=== PATIENT | female | born 1970 | race Caucasian/White ===

== ENCOUNTER 2017-09-20 20:30 | Inpatient (IN) ==
[2017-09-20 22:12] LABS: ABG Base Excess -11.9 MMOL/L (-2.5-2.5); ABG HCO3 15.4 MMOL/L (20-26); ABG Oxygen Saturation 97.8 % (95-100); ABG PCO2 25.4 MM HG (35-48); ABG PH 7.313 (7.35-7.45); ABG TCO2 11.2 MMOL/L (23-27)
[2017-09-20] MEDS ORDERED: ALBUTEROL 2.5 MG/3 ML NEB RESP TX PRN (22:54)
[2017-09-20] MEDS ORDERED: SODIUM CHLORIDE 0.45% 1,000 ML IV SCH (23:00)
[2017-09-20 23:01] LABS: Basophils % 0.3 % (0.0-0.8); Eosinophils # 0.1 10*3/uL (0.0-0.87); Eosinophils % 1.5 % (0.00-10.9); Hematocrit 41.3 VOL% (35.7-47.0); Hemoglobin 14.5 GM/DL (12.0-16.0); Immature Granulocytes % 0.5 %; Immature Granulocytes Absolute 0.05 #; Lymphocytes # 2.8 10*3/uL (1.4-4.0); Lymphocytes % 28.9 % (21.3-54.2); Mean Corpuscular HGB Conc 35.1 GM/DL (32-36); Mean Corpuscular Hemoglobin 31 PG (27-34); Mean Corpuscular Volume 86.8 FL (87-102); Mean Platelet Volume 10.8 FL (9.6-12.0); Monocytes # 0.5 10*3/uL (0.11-0.8); Monocytes % 5.1 % (1.7-12.7); Neutrophils # 6.1 10*3/uL (1.4-7.4); Neutrophils % 63.7 % (38.7-73.9); Platelet Count 218 T/CUMM (130-400); Red Blood Count 4.76 MC/CUMM (3.8-5.5); Red Cell Distribution Width 12.9 % (9.3-17.3); White Blood Count 9.6 T/CUMM (4-12)
[2017-09-20] MEDS ORDERED: DEXTROSE 50% 25 GM/50 ML VIAL IV PRN (23:08)
[2017-09-20] MEDS ORDERED: GLUCAGON 1 MG VIAL IM PRN (23:08)
[2017-09-20 23:16] LABS: Lactic Acid 0.3 MMOL/L (0.4-2.0)
[2017-09-20 23:19] LABS: Alanine Aminotransferase 164 U/L (13-56); Albumin 3.4 G/DL (3.4-5.0); Alkaline Phosphatase 95 U/L (45-117); Aspartate Amino Transferase 41 U/L (0-37); Bilirubin,Total < 0.39 MG/DL (0.2-1.0); Blood Urea Nitrogen 16 MG/DL (7-18); Calcium 7.9 MG/DL (8.5-10.1); Glucose 157 MG/DL (74-106); Potassium 3.5 MMOL/L (3.5-5.1); Sodium 136 MMOL/L (136-145); Total Protein 7.2 G/DL (6.4-8.3)
[2017-09-20] MEDS: levETIRAcetam 250 MG TABLET PO SCH (23:26)
[2017-09-20] MEDS ORDERED: LEVOFLOXACIN INJ 750 MG in PREMIX 1 EACH IV SCH (23:30)
[2017-09-21 00:04] LABS: INR 0.9; PT Patient Result 9.8 SECS; Partial Thromboplastin Time 32.9 SECS (0-40)
[2017-09-21] MEDS: CLINDAMYCIN INJ 900 MG in PREMIX 1 EACH IV SCH ×3 (02:20→16:25)
[2017-09-21 06:00] LABS: Calcium 8.3 MG/DL (8.5-10.1); Osmolality,Calculated 277.1 MOS/KG (273-304); Potassium 3.3 MMOL/L (3.5-5.1)
[2017-09-21] MEDS ORDERED: INSULIN REGULAR 100 UNIT/ML SUBCUT SCH (07:30)
[2017-09-21] MEDS ORDERED: glipiZIDE 5 MG TABLET PO SCH (07:30)
[2017-09-21] MEDS ORDERED: POTASSIUM CHLORIDE 20 MEQ TABLET PO ONE (07:34)
[2017-09-21] MEDS ORDERED: glyBURIDE 5 MG TABLET PO SCH (08:00)
[2017-09-21] MEDS ORDERED: metFORMIN 500 MG TABLET PO SCH (08:00)
[2017-09-21] MEDS ORDERED: CHLORTHALIDONE 25 MG TABLET PO SCH (09:00)
[2017-09-21] MEDS: TOPIRAMATE 200 MG TABLET PO SCH (09:23)
[2017-09-21] MEDS: levETIRAcetam 250 MG TABLET PO SCH ×2 (09:25→20:28)
[2017-09-21] MEDS: LOSARTAN 50 MG TABLET PO SCH (09:25)
[2017-09-21] MEDS: SODIUM CHLOR 0.9% KCL 20 MEQ 20 MEQ/1,000 ML BAG IV SCH ×2 (09:26→19:57)
[2017-09-21] MEDS: FLUCONAZOLE 100 MG TABLET PO SCH (09:26)
[2017-09-21] MEDS: ENOXAPARIN 40 MG/0.4 ML SYRINGE SUBCUT SCH (09:34)
[2017-09-21] MEDS: SODIUM BICARBONATE 650 MG TABLET PO SCH ×3 (09:35→20:28)
[2017-09-21] MEDS: INSULIN REGULAR 100 UNIT/ML SUBCUT SCH ×5 (09:35→20:28)
[2017-09-21] MEDS ORDERED: ONDANSETRON 4 MG/2 ML VIAL ONE (11:26)
[2017-09-21] MEDS ORDERED: oxyCODONE/ACETAMINOPHEN 5-325 MG TABLET PO PRN (11:34)
[2017-09-21] MEDS ORDERED: KETOROLAC 15 MG/1 ML VIAL IV PRN (11:48)
[2017-09-21] MEDS ORDERED: ONDANSETRON 4 MG/2 ML VIAL IV PRN (12:00)
[2017-09-21] MEDS: LEVOFLOXACIN 750 MG TABLET PO SCH (13:10)
[2017-09-21] MEDS: MORPHINE 4 MG/1 ML VIAL IV PRN (13:10)
[2017-09-21] MEDS ORDERED: ZALEPLON 5 MG CAPSULE PO PRN (20:06)
[2017-09-21] MEDS: INSULIN GLARGINE 100 UNIT/ML SUBCUT SCH (20:28)
[2017-09-22] MEDS: MORPHINE 4 MG/1 ML VIAL IV PRN ×2 (00:27→21:44)
[2017-09-22] MEDS: CLINDAMYCIN INJ 900 MG in PREMIX 1 EACH IV SCH ×3 (00:32→16:50)
[2017-09-22] MEDS: SODIUM CHLOR 0.9% KCL 20 MEQ 20 MEQ/1,000 ML BAG IV SCH ×2 (05:33→23:34)
[2017-09-22 05:51] LABS: Basophils % 0.3 % (0.0-0.8); Eosinophils # 0.2 10*3/uL (0.0-0.87); Eosinophils % 2.3 % (0.00-10.9); Hematocrit 40.9 VOL% (35.7-47.0); Hemoglobin 14.1 GM/DL (12.0-16.0); Immature Granulocytes % 0.6 %; Immature Granulocytes Absolute 0.04 #; Lymphocytes % 28.9 % (21.3-54.2); Mean Corpuscular HGB Conc 34.5 GM/DL (32-36); Mean Corpuscular Hemoglobin 30 PG (27-34); Mean Corpuscular Volume 86.5 FL (87-102); Mean Platelet Volume 10.7 FL (9.6-12.0); Monocytes # 0.4 10*3/uL (0.11-0.8); Monocytes % 5.6 % (1.7-12.7); Neutrophils # 4.3 10*3/uL (1.4-7.4); Neutrophils % 62.3 % (38.7-73.9); Platelet Count 217 T/CUMM (130-400); Red Blood Count 4.73 MC/CUMM (3.8-5.5); Red Cell Distribution Width 13.1 % (9.3-17.3); White Blood Count 6.8 T/CUMM (4-12)
[2017-09-22 06:24] LABS: Calcium 8.9 MG/DL (8.5-10.1); Osmolality,Calculated 281.4 MOS/KG (273-304); Potassium 3.7 MMOL/L (3.5-5.1)
[2017-09-22] MEDS ORDERED: FAMOTIDINE 20 MG TABLET PO ONE (08:12)
[2017-09-22] MEDS ORDERED: DIAZEPAM 5 MG TABLET PO ONE (08:12)
[2017-09-22] MEDS ORDERED: BUPIVACAINE MPF 0.25% 30 ML VIAL ONE (11:27)
[2017-09-22] MEDS ORDERED: LIDOCAINE 1% 20 ML VIAL ONE (11:27)
[2017-09-22] MEDS ORDERED: PROPOFOL 200 MG/20 ML VIAL IV ONE (12:43)
[2017-09-22] MEDS ORDERED: MIDAZOLAM 2 MG/2 ML VIAL ONE (12:44)
[2017-09-22] MEDS ORDERED: fentaNYL 100 MCG/2 ML VIAL ONE (12:44)
[2017-09-22] MEDS ORDERED: ONDANSETRON 4 MG/2 ML VIAL IV PRN (12:46)
[2017-09-22] MEDS ORDERED: MORPHINE 10 MG/1 ML VIAL IV PRN (12:46)
[2017-09-22] MEDS ORDERED: MEPERIDINE 25 MG/1 ML VIAL IV PRN (12:46)
[2017-09-22] MEDS ORDERED: ONDANSETRON 4 MG/2 ML VIAL ONE (12:47)
[2017-09-22] MEDS ORDERED: MEPERIDINE 25 MG/1 ML VIAL ONE (12:47)
[2017-09-22] MEDS: LEVOFLOXACIN 750 MG TABLET PO SCH (13:29)
[2017-09-22] MEDS: FLUCONAZOLE 100 MG TABLET PO SCH (13:30)
[2017-09-22] MEDS: TOPIRAMATE 200 MG TABLET PO SCH (13:30)
[2017-09-22] MEDS: LOSARTAN 50 MG TABLET PO SCH (13:30)
[2017-09-22] MEDS: ENOXAPARIN 40 MG/0.4 ML SYRINGE SUBCUT SCH (13:30)
[2017-09-22] MEDS: levETIRAcetam 250 MG TABLET PO SCH ×2 (13:30→21:42)
[2017-09-22] MEDS: INSULIN REGULAR 100 UNIT/ML SUBCUT SCH ×3 (13:31→21:44)
[2017-09-22] MEDS: INSULIN GLARGINE 100 UNIT/ML SUBCUT SCH (21:44)
[2017-09-23] MEDS: CLINDAMYCIN INJ 900 MG in PREMIX 1 EACH IV SCH ×3 (00:56→17:27)
[2017-09-23] MEDS: SODIUM CHLOR 0.9% KCL 20 MEQ 20 MEQ/1,000 ML BAG IV SCH ×2 (03:56→14:16)
[2017-09-23] MEDS: ENOXAPARIN 40 MG/0.4 ML SYRINGE SUBCUT SCH (09:04)
[2017-09-23] MEDS: FLUCONAZOLE 100 MG TABLET PO SCH (09:04)
[2017-09-23] MEDS: TOPIRAMATE 200 MG TABLET PO SCH ×2 (09:05→21:27)
[2017-09-23] MEDS: LOSARTAN 50 MG TABLET PO SCH (09:05)
[2017-09-23] MEDS: levETIRAcetam 250 MG TABLET PO SCH ×2 (09:06→21:26)
[2017-09-23] MEDS: LEVOFLOXACIN 750 MG TABLET PO SCH (09:06)
[2017-09-23] MEDS: INSULIN REGULAR 100 UNIT/ML SUBCUT SCH ×4 (09:07→21:27)
[2017-09-23] MEDS: MORPHINE 4 MG/1 ML VIAL IV PRN ×3 (09:10→21:41)
[2017-09-23] MEDS: INSULIN GLARGINE 100 UNIT/ML SUBCUT SCH (21:28)
[2017-09-24] MEDS: SODIUM CHLOR 0.9% KCL 20 MEQ 20 MEQ/1,000 ML BAG IV SCH ×4 (00:29→20:40)
[2017-09-24] MEDS: CLINDAMYCIN INJ 900 MG in PREMIX 1 EACH IV SCH ×3 (00:30→17:43)
[2017-09-24] MEDS: MORPHINE 4 MG/1 ML VIAL IV PRN ×4 (06:21→17:45)
[2017-09-24] MEDS: levETIRAcetam 250 MG TABLET PO SCH ×2 (08:43→21:02)
[2017-09-24] MEDS: LEVOFLOXACIN 750 MG TABLET PO SCH (08:43)
[2017-09-24] MEDS: FLUCONAZOLE 100 MG TABLET PO SCH (08:44)
[2017-09-24] MEDS: LOSARTAN 50 MG TABLET PO SCH (08:44)
[2017-09-24] MEDS: TOPIRAMATE 200 MG TABLET PO SCH ×2 (08:45→21:02)
[2017-09-24] MEDS: ENOXAPARIN 40 MG/0.4 ML SYRINGE SUBCUT SCH (08:45)
[2017-09-24] MEDS: INSULIN REGULAR 100 UNIT/ML SUBCUT SCH ×4 (11:22→21:05)
[2017-09-24 14:51] LABS: Hepatitis A Ab IgM Quant 0.14 Index; Hepatitis A Ab IgM Result Negative (Negative); Hepatitis B Core IgM Result Negative (Negative); Hepatitis B Surface Ag Quant < 0.10 Index; Hepatitis B Surface Ag Result Negative (Negative); Hepatitis C Virus Ab Quant 0.03 Index; Hepatitis C Virus Ab Result Negative (Negative)
[2017-09-24] MEDS: metFORMIN 500 MG TABLET PO SCH (17:43)
[2017-09-24] MEDS: INSULIN GLARGINE 100 UNIT/ML SUBCUT SCH (21:04)
[2017-09-25] MEDS: CLINDAMYCIN INJ 900 MG in PREMIX 1 EACH IV SCH ×2 (00:33→08:38)
[2017-09-25] MEDS: MORPHINE 4 MG/1 ML VIAL IV PRN (05:09)
[2017-09-25 06:53] LABS: Basophils % 0.5 % (0.0-0.8); Eosinophils # 0.2 10*3/uL (0.0-0.87); Eosinophils % 3.2 % (0.00-10.9); Hematocrit 39.8 VOL% (35.7-47.0); Hemoglobin 13.5 GM/DL (12.0-16.0); Immature Granulocytes % 0.4 %; Immature Granulocytes Absolute 0.02 #; Lymphocytes % 35.9 % (21.3-54.2); Mean Corpuscular HGB Conc 33.9 GM/DL (32-36); Mean Corpuscular Hemoglobin 30 PG (27-34); Mean Corpuscular Volume 89.4 FL (87-102); Monocytes # 0.3 10*3/uL (0.11-0.8); Monocytes % 5.7 % (1.7-12.7); Neutrophils # 3.1 10*3/uL (1.4-7.4); Neutrophils % 54.3 % (38.7-73.9); Platelet Count 223 T/CUMM (130-400); Red Blood Count 4.45 MC/CUMM (3.8-5.5); Red Cell Distribution Width 13.5 % (9.3-17.3); White Blood Count 5.6 T/CUMM (4-12)
[2017-09-25 07:33] LABS: Calcium 8.3 MG/DL (8.5-10.1); Osmolality,Calculated 286.3 MOS/KG (273-304); Potassium 4.3 MMOL/L (3.5-5.1)
[2017-09-25] MEDS: SODIUM CHLOR 0.9% KCL 20 MEQ 20 MEQ/1,000 ML BAG IV SCH (08:26)
[2017-09-25] MEDS: INSULIN REGULAR 100 UNIT/ML SUBCUT SCH ×2 (08:27→12:38)
[2017-09-25] MEDS: ENOXAPARIN 40 MG/0.4 ML SYRINGE SUBCUT SCH (08:28)
[2017-09-25] MEDS: TOPIRAMATE 200 MG TABLET PO SCH (08:29)
[2017-09-25] MEDS: metFORMIN 500 MG TABLET PO SCH (08:29)
[2017-09-25] MEDS: LEVOFLOXACIN 750 MG TABLET PO SCH (08:30)
[2017-09-25] MEDS: FLUCONAZOLE 100 MG TABLET PO SCH (08:31)
[2017-09-25] MEDS: levETIRAcetam 250 MG TABLET PO SCH (08:35)
[2017-09-25] MEDS: LOSARTAN 50 MG TABLET PO SCH (08:36)
[2017-09-25 11:59] VITALS: BP 117/78
== END 2017-09-25 13:37 | disposition home or self-care (01) | DRG 580 ==
LOC: N.CC → SUATTDRO 20:36 → MERGE 20:36 → N.2E 09-21 21:27
PROVIDERS: ADMIT Family Medicine; ATTEND Internal Medicine